=== PATIENT | male | born 1950 | race Caucasian/White ===

== ENCOUNTER 2025-05-24 06:15 | Inpatient (IN) ==
[~2025-05-24 06:15] MED LIST: ULTANE GAS IN ONE
[2025-05-24] MEDS: OFIRMEV IV 1000 MG VIAL 1,000 MG/100 ML VIAL IV ONE (07:11)
[2025-05-24] MEDS: ROBINUL ONE (07:11)
[2025-05-24] MEDS: ZEMURON 100 MG VIAL ONE (07:11)
[2025-05-24] MEDS: ZOFRAN INJ 4 MG VIAL ONE (07:11)
[2025-05-24] MEDS: DECADRON INJ ONE (07:11)
[2025-05-24] MEDS: DIPRIVAN VIAL 20 ML ONE (07:11)
[2025-05-24] MEDS: PRECEDEX INJ VIAL ONE (07:11)
[2025-05-24] MEDS: BRIDION ONE (07:11)
[2025-05-24] MEDS: REGLAN INJ 10 MG VIAL ONE (07:11)
[2025-05-24] MEDS: NICARDIPINE HCL VIAL ONE (07:12)
[2025-05-24] MEDS: VERSED ONE (07:12)
[2025-05-24] MEDS: XYLOCAINE 2 % (PLAIN) ONE (07:12)
[2025-05-24] MEDS: FENTANYL VIAL INJ 100 mcg ONE (07:15)
[2025-05-24] MEDS: PEPCID 20 MG VIAL ONE (07:16)
[2025-05-24] MEDS: KETAMINE HCL ONE (07:18)
[2025-05-24] MEDS ORDERED: CATAPRES TAB 0.1 MG PO ONE (07:28)
[2025-05-24] MEDS: LR 1,000 ML IV 500 ML IV PRN (07:30)
[2025-05-24] MEDS: NS 100 ML IV 100 ML ONE (07:40)
[2025-05-24] MEDS: LR 1,000 ML IV 1,000 ML IV ONE (07:40)
[2025-05-24] MEDS: CATAPRES TAB 0.1 MG PO ONE (07:40)
[2025-05-24] MEDS: ANCEF VIAL 1 GRAM ONE (07:41)
[2025-05-24] MEDS: ZOFRAN INJ 4 MG VIAL IVP PRN (07:41)
[2025-05-24] MEDS: PEPCID 20 MG VIAL IVP PRN (07:42)
[2025-05-24] MEDS: ANCEF VIAL 1 GRAM IV PRN (07:43)
[2025-05-24] MEDS: REGLAN INJ 10 MG VIAL IVP PRN (07:44)
[2025-05-24] MEDS: VERSED IVP PRN (07:47)
[2025-05-24] MEDS: FENTANYL VIAL INJ 100 mcg IVP PRN (07:52)
[2025-05-24] MEDS: ZEMURON 100 MG VIAL IVP PRN (07:54)
[2025-05-24] MEDS: NS 500 ML IV 500 ML IV ONE (08:00)
[2025-05-24] MEDS: KETAMINE HCL IVP PRN (08:06)
[2025-05-24] MEDS: ROBINUL IVP PRN (08:08)
[2025-05-24] MEDS: EPHEDRINE SULFATE INJ ONE (08:10)
[2025-05-24] MEDS: NS 1,000 ML IV 1,000 ML ONE (08:10)
[2025-05-24] MEDS: NS 1,000 ML IV 200 ML IV PRN (08:12)
[2025-05-24] MEDS: HEPARIN SODIUM INJ 5000 UNITS ONE (08:19)
[2025-05-24] MEDS: DECADRON INJ IVP PRN (08:20)
[2025-05-24] MEDS: OFIRMEV IV 1000 MG VIAL 1,000 MG/100 ML VIAL IV PRN (08:22)
[2025-05-24] MEDS: HEPARIN 1,000 UNIT/500 ML-NS 3,000 UNIT/1,500 ML IV.SOLN ONE (08:22)
[2025-05-24] MEDS: DIPRIVAN VIAL 200 ML IVP PRN (08:27)
[2025-05-24] MEDS: MARCAINE 0.5% ONE (08:36)
[2025-05-24] MEDS ORDERED: HEPARIN SODIUM INJ 5000 UNITS IVP PRN (08:45)
[2025-05-24] MEDS ORDERED: BARHEMSYS INJ IVP PRN (08:54)
[2025-05-24] MEDS ORDERED: ZOFRAN INJ 4 MG VIAL IVP PRN (08:54)
[2025-05-24] MEDS ORDERED: BENADRYL INJ 50 MG VIAL IVP PRN (08:54)
[2025-05-24] MEDS: PROTAMINE SULFATE 50 MG VIAL ONE (09:27)
[2025-05-24] MEDS: PROTAMINE SULFATE 50 MG VIAL IVP PRN (09:28)
[2025-05-24] MEDS: EPHEDRINE SULFATE INJ IVP PRN (09:33)
[2025-05-24] MEDS: BRIDION IVP PRN (09:34)
[2025-05-24] MEDS ORDERED: XYLOCAINE 2 % (PLAIN) PRN (09:38)
[2025-05-24] MEDS: NICARDIPINE HCL VIAL IV PRN (09:39)
[2025-05-24] MEDS ORDERED: DILAUDID INJ ONE (09:39)
[2025-05-24] MEDS: PRECEDEX INJ VIAL IVP PRN (09:41)
[2025-05-24] MEDS: DILAUDID INJ IVP PRN ×3 (09:55→20:13)
[2025-05-24] MEDS: TORADOL 30 MG VIAL ONE (10:05)
[2025-05-24] MEDS: DILAUDID INJ ONE (10:24)
--- NOTE | 2025-05-24 11:09 | OR.IMMED ---
IMMEDIATE POST-OP NOTE Immediate Post-Op Note Date of surgery/procedure: 05/24/25 Pre-Op Diagnosis: Severe stenosis left internal carotid artery Post-Op Diagnosis: 90% stenosis left internal carotid artery, over a narrow range at the takeoff of the internal carotid artery Procedure: Left carotid arterectomy and patch angioplasty Surgeon/Edge Burnisher: Lino Findings: as above Specimens Removed: Carotid artery plaque Estimated Blood Loss: 150 cc Complications: none, awoke with no neurological deficit Progress Notes: To PACU then to floor. Clear liquid diet. Start all home medications. Start daily aspirin
[2025-05-24] MEDS: LR 1,000 ML IV 1,000 ML IV SCH (11:30)
[2025-05-24] MEDS: ULTANE GAS IN ONE (12:03)
[2025-05-24] MEDS: PERCOCET TAB 5/325 MG ONE (12:03)
[2025-05-24] MEDS: NEURONTIN CAP 300 MG PO SCH (13:12)
[2025-05-24] MEDS: BENADRYL INJ 50 MG VIAL IVP ONE (15:07)
[2025-05-24] MEDS: PEPCID 20 MG VIAL IVP SCH (16:04)
--- NOTE | 2025-05-24 19:02 | NOTE.SOAP ---
Soap Note Note for Day of Date of Exam: 05/24/25 Subjective Data Subjective Data: S/ P left carotid endarterectomy with patch angioplasty of severe stenosis of left internal carotid artery. Patient has had some difficulty swallowing liquids and tablets since surgery. He has had coughing and short soreness of his throat since the intubation. I also had to dissected off the 12th nerve and he does have some mild difficulty protruding the left side of the tongue. This uses however does not affect swallowing is more so mastication. He is otherwise stable and started back on his usual medications. Objective Data Temperature: 97.5 F Pulse Rate: 66 Respiratory Rate: 18 Blood Pressure: 162/75 O2 Sat by Pulse Oximetry: 100 Objective Data: Left neck incision clean and dry. No hematoma. No swelling. Mild difficulty protruding the left side of the tongue Assessment Assessment: Status post left carotid neurectomy and patch angioplasty with mild difficulty protruding left side of the tongue. Patient has been started on a regular diet and is able to eat it well. We will obtain swallowing study tomorrow Plan Plan: see assessment above
[2025-05-24] MEDS ORDERED: ZOLOFT ONE (20:06)
[2025-05-24] MEDS: CRESTOR TAB 10 MG PO SCH (20:11)
[2025-05-24] MEDS: LOTENSIN TAB 10 MG PO SCH (20:11)
[2025-05-24] MEDS: ZOLOFT PO SCH (20:12)
[2025-05-24] MEDS: COLACE CAP 100 MG PO SCH (20:12)
[2025-05-24] MEDS: CATAPRES TAB 0.2 MG PO ONE (21:59)
[2025-05-24] MEDS: LOTENSIN TAB 10 MG PO ONE (21:59)
[2025-05-25] MEDS: CATAPRES TAB 0.2 MG PO ONE (01:15)
[2025-05-25 05:25] LABS: MEAN PLATELET VOLUME 9.7 fL (7.4-11.0); RED CELL DISTRIBUTION WIDTH 13.8 % (11.6-16.5)
[2025-05-25 05:41] LABS: COR CA(FOR HYPOALB) 8.8 mg/dL (8.5-10.1); COR NA(FOR HYPERGLY) 139 mmol/L (136-145); CREATININE 1.45 mg/dL (0.70-1.30); eGFR NON BLACK RACES 51 (>60)
[2025-05-25] MEDS: CATAPRES TAB 0.2 MG ONE (07:01)
[2025-05-25] MEDS: ASPIRIN EC 81 MG PO SCH (08:18)
[2025-05-25] MEDS: NEURONTIN CAP 300 MG PO SCH (08:38)
[2025-05-25] MEDS: ZOLOFT ONE (08:49)
[2025-05-25] MEDS: LOTENSIN TAB 10 MG PO SCH (08:53)
[2025-05-25] MEDS: NORVASC TAB 5 MG PO SCH (08:53)
[2025-05-25] MEDS: APRESOLINE INJ 20 MG VIAL IVP ONE (12:35)
[2025-05-25] MEDS: PERCOCET TAB 5/325 MG PO PRN (14:33)
[2025-05-25] MEDS: CATAPRES-TTS-1 TD PRN (14:33)
[2025-05-25] MEDS ORDERED: ZOLOFT ONE (19:03)
--- NOTE | 2025-05-25 20:05 | NOTE.SOAP ---
Soap Note Note for Day of Date of Exam: 05/25/25 Subjective Data Subjective Data: Postoperative day 1 after left carotid endarterectomy and patch angioplasty. Patient complaining some difficulty swallowing. Question of involvement of the left 12th nerve. Tongue does however appear midline. Patient seen in consultation by speech therapy and had swallowing study which they recommend he turn his head to the left when eating and that is doing better. There is a main problem post procedure has been his hypertension. He has been seen in consultation by Dr. Martinez and started on amlodipine and Benzepril. Objective Data Temperature: 98.4 F Pulse Rate: 55 Respiratory Rate: 18 Blood Pressure: 154/72 O2 Sat by Pulse Oximetry: 96 Objective Data: Left neck incision looks clean no hematoma. Tongue appears midline now. Assessment Assessment: Status post left carotid enterectomy with some difficulty swallowing and some hypertension post procedure. Plan Plan: Recommendations as per speech therapy in regards to swallowing. Hopefully this resolves on its own. Patient was started on amlodipine and Benzepril by Dr. Martinez and already blood pressure seems to be improved. Will plan discharge home in the a.m.
[2025-05-26 05:47] LABS: MEAN PLATELET VOLUME 9.8 fL (7.4-11.0); RED CELL DISTRIBUTION WIDTH 13.6 % (11.6-16.5)
[2025-05-26 05:56] LABS: COR CA(FOR HYPOALB) 9.0 mg/dL (8.5-10.1); CREATININE 1.34 mg/dL (0.70-1.30); eGFR NON BLACK RACES 56 (>60)
[2025-05-26] MEDS ORDERED: TESSALON PERLES PO PRN (08:04)
[2025-05-26] MEDS: ZOLOFT ONE (08:06)
[2025-05-26] MEDS: CATAPRES-TTS-2 TD SCH (08:21)
[2025-05-26 08:43] VITALS: O2SAT 96
[2025-05-26] MEDS: MUCINEX DM PO SCH (08:50)
[2025-05-26] MEDS: TRANSDERM-SCOP TD SCH (08:51)
[2025-05-26] MEDS: DECADRON INJ IVP SCH (08:51)
--- NOTE | 2025-05-26 09:14 | DR.CONSULT ---
CONSULT Consultation for Day of: Date: 05/25/25 Chief Complaint Chief Complaint: Hypertension Allergies Allergies Allergy/AdvReac Type Severity Reaction Status Date / Time codeine Allergy Verified 05/24/25 06:51 haloperidol (From Haldol) Allergy Verified 05/24/25 06:51 History of Present Illness History of Present Illness: Patient admitted by surgery for left carotid endarterectomy. Was originally planned to be discharged quickly after surgery but blood pressures have remained elevated and he has had some difficulty swallowing. Speech therapy is post come by later today for evaluation. Blood pressure has been as high as 206/91 he normally takes benazepril at home. Patient currently reports mild difficulty swallowing, mild vocal changes, and cough. Denies headache, vision changes, chest pain, BOO, or edema. PMH: CKD 3A, HLD, carotid stenosis, hypertension. PSH: Left carotid endarterectomy, appendectomy. Social: [place] resident, retired, no tobacco use. ROS: 12 point ROS negative except as noted above. PE: Well-developed, well-nourished male in no acute distress. Head NCAT with bandage to the left anterolateral neck. Heart regular rate and rhythm, lungs clear, belly soft with bowel sounds present. Able to move all extremities equally well. Able to sit up in bed with no difficulty. Speech is grossly normal. Past Surgical History Surgical History: Appendectomy Family History Family Medical History: Diabetes Mellitus, Cancer and Hypertension Medications Home Medications: codeine Allergy (Verified 05/24/25 06:51) haloperidol (From Haldol) Allergy (Verified 05/24/25 06:51) CONTINUE taking the following medications atorvastatin 40 mg tablet 40 mg PO QDAY 05/24/25 [History] benazepril 10 mg tablet 10 mg PO QDAY 05/24/25 [History] gabapentin 600 mg tablet 600 mg PO DAILY 05/24/25 [History] ibuprofen 800 mg tablet 800 mg PO TID 05/24/25 [History] sertraline 100 mg tablet 100 mg PO BID 05/24/25 [History] Physical Exam Vital Signs: Vital Signs Temperature 98.0 F Pulse Rate [Apical] 62 Pulse Rate [Apical] 64 Pulse Rate [Apical] 58 Pulse Rate [Apical] 60 Pulse Rate [Apical] 55 Pulse Rate [Apical] 66 Pulse Rate [Apical] 58 Pulse Rate [Apical] 59 Respiratory Rate 20 Respiratory Rate 18 Respiratory Rate 20 Respiratory Rate 18 Respiratory Rate 20 Respiratory Rate 20 Respiratory Rate 22 Respiratory Rate 22 Respiratory Rate 20 Blood Pressure [Left Arm] 188/72 Blood Pressure [Left Arm] 168/80 Blood Pressure [Left Arm] 170/72 Blood Pressure [Left Arm] 150/72 Blood Pressure [Left Arm] 162/80 Blood Pressure [Left Arm] 168/84 Blood Pressure [Left Arm] 187/76 Blood Pressure [Left Arm] 190/84 Blood Pressure [Left Arm] 160/70 Blood Pressure [Left Arm] 179/82 Blood Pressure [Left Arm] 170/72 O2 Sat by Pulse Oximetry 97 O2 Sat by Pulse Oximetry 97 O2 Sat by Pulse Oximetry 97 O2 Sat by Pulse Oximetry 96 O2 Sat by Pulse Oximetry 95 O2 Sat by Pulse Oximetry 99 O2 Sat by Pulse Oximetry 96 O2 Sat by Pulse Oximetry 95 Plan (1) Essential (primary) hypertension: Status: Chronic Narrative Support Text: Double benazepril and make twice daily. Start amlodipine 5 twice daily. Continue hypertension protocol. May need to add a clonidine patch (2) Mixed hyperlipidemia: Status: Chronic Narrative Support Text: Can resume the statin or hold it due to dysphagia (3) Chronic kidney disease, stage 3a: Status: Chronic (4) History of left-sided carotid endarterectomy: Status: Acute (5) Acute cough: Status: Acute (6) Dysphagia: Status: Acute Qualifiers: Dysphagia type: unspecified Qualified Code(s): R13.10 - Dysphagia, unspecified Narrative Support Text: Per surgery and ST.
--- NOTE | 2025-05-26 09:16 | NOTE.SOAP ---
Soap Note Note for Day of Date of Exam: 05/26/25 Subjective Data Subjective Data: No acute events overnight. Continues to cough. Voice is more hoarse today. Did have Benadryl yesterday. ST advised that he turn to the left when trying to eat but otherwise no major recommendations. Blood pressure is better but still not at goal. Did have a couple doses of IV hydralazine yesterday. Tolerating the benazepril and amlodipine. Objective Data Objective Data: Well-developed, well-nourished male in no acute distress. Consistently coughing but nonproductive. Heart regular rate and rhythm with clear lungs. Voice is hoarse. Belly is soft with bowel sounds present. Still able to sit up and move all extremities appropriately. Assessment Assessment: 1. Benign ess HTN 2. CKD3a 3. s/p LEFT carotid endartectomy 4. Mixed HLD Plan Plan: Start clonidine patch. BP is better, but still to high. Continue other meds. Discharge home on current meds when cleared by surgery for close f/u with PCP. Consider IV Decadron 6 mg today and tomorrow along with a scopolamine patch. Would also recommend some benzonatate as needed and Mucinex.
[2025-05-26 12:03] VITALS: BP 178/79; PULSE 77; RESP 18; TEMP 98.2
--- NOTE | 2025-05-26 12:15 | W.DIS.FURT ---
Summary of Discharge Discharge Summary of Date Date of Exam: 05/26/25 Admission Date Date of Admission: 05/24/25 Admission Diagnosis Hospital Course: This is a 74-year-old male with known significant bilateral carotid artery stenosis. He was admitted for left carotid endarterectomy and patch angioplasty which was performed on the day of admission May 24, 2025. During the procedure he had a very tightly adherent and inflamed area around the 12th nerve which was dissected free. The nerve remained intact. He underwent this procedure without difficulty otherwise. No neurological deficit. Tongue is still midline. Post procedure he does have some difficulty swallowing and coughing. He has been seen by speech therapy and they recommend that he turn his head to the left when swallowing. He is sparingly taking regular diet and has some mucus production. He was given the option of remaining in the hospital versus going home. He chose to go home . He is to be discharged home on his usual medications. He also had some hypertension postprocedure and was seen in consultation by Dr. Martinez who placed him on Benzapril 20 mg twice daily and amlodipine 5 mg twice daily. He will continue these plus Percocet 5 mg tablets 1 every 6 hours PRN pain in addition to his usual medications. He will follow-up me in 1 week. He has my personal cell phone number to call me for any problems. Vital Signs: Vital Signs (72 hours) 05/24/25 06:30 05/24/25 06:30 05/24/25 09:51 Temperature 98.6 F 97.0 F L Pulse Rate 67 98 H Pulse Rate [Apical] Respiratory Rate 18 18 Blood Pressure 206/91 156/78 Blood Pressure [Left Arm] O2 Sat by Pulse Oximetry 100 100 Oxygen Delivery Method Room Air Room Air Aerosol Face Tent Oxygen Flow Rate FIO2% 05/24/25 09:56 05/24/25 10:01 05/24/25 10:05 Temperature Pulse Rate 98 H 79 Pulse Rate [Apical] Respiratory Rate 18 20 18 Blood Pressure 171/81 167/79 Blood Pressure [Left Arm] O2 Sat by Pulse Oximetry 100 100 Oxygen Delivery Method Aerosol Face Tent Nasal Cannula Oxygen Flow Rate FIO2% 05/24/25 10:06 05/24/25 10:11 05/24/25 10:14 Temperature Pulse Rate 79 65 Pulse Rate [Apical] Respiratory Rate 20 18 18 Blood Pressure 149/53 182/76 Blood Pressure [Left Arm] O2 Sat by Pulse Oximetry 100 100 Oxygen Delivery Method Nasal Cannula Nasal Cannula Oxygen Flow Rate FIO2% 05/24/25 10:16 05/24/25 10:21 05/24/25 10:25 Temperature Pulse Rate 64 72 Pulse Rate [Apical] Respiratory Rate 18 18 18 Blood Pressure 162/75 137/59 Blood Pressure [Left Arm] O2 Sat by Pulse Oximetry 99 99 Oxygen Delivery Method Nasal Cannula Nasal Cannula Oxygen Flow Rate FIO2% 05/24/25 10:26 05/24/25 10:31 05/24/25 10:36 Temperature Pulse Rate 79 65 63 Pulse Rate [Apical] Respiratory Rate 18 17 17 Blood Pressure 141/62 179/78 147/70 Blood Pressure [Left Arm] O2 Sat by Pulse Oximetry 100 95 94 L Oxygen Delivery Method Nasal Cannula Nasal Cannula Nasal Cannula Oxygen Flow Rate FIO2% 05/24/25 10:41 05/24/25 10:46 05/24/25 10:51 Temperature Pulse Rate 62 62 61 Pulse Rate [Apical] Respiratory Rate 17 18 18 Blood Pressure 150/80 137/59 149/71 Blood Pressure [Left Arm] O2 Sat by Pulse Oximetry 96 95 94 L Oxygen Delivery Method Nasal Cannula Nasal Cannula Nasal Cannula Oxygen Flow Rate FIO2% 05/24/25 10:56 05/24/25 11:00 05/24/25 11:01 Temperature Pulse Rate 62 63 Pulse Rate [Apical] Respiratory Rate 18 18 18 Blood Pressure 147/70 136/62 Blood Pressure [Left Arm] O2 Sat by Pulse Oximetry 95 95 Oxygen Delivery Method Nasal Cannula Nasal Cannula Oxygen Flow Rate FIO2% 05/24/25 11:05 05/24/25 11:06 05/24/25 11:10 Temperature 97.0 F L Pulse Rate 72 65 Pulse Rate [Apical] Respiratory Rate 18 18 18 Blood Pressure 133/77 132/79 Blood Pressure [Left Arm] O2 Sat by Pulse Oximetry 98 98 Oxygen Delivery Method Nasal Cannula Nasal Cannula Oxygen Flow Rate FIO2% 05/24/25 11:20 05/24/25 11:35 05/24/25 11:50 Temperature 97.9 F 97.4 F L 98.5 F Pulse Rate Pulse Rate [Apical] 61 58 L 61 Respiratory Rate 16 16 16 Blood Pressure Blood Pressure [Left Arm] 155/75 152/73 134/65 O2 Sat by Pulse Oximetry 98 100 100 Oxygen Delivery Method Oxygen Flow Rate FIO2% 05/24/25 12:05 05/24/25 12:20 05/24/25 13:20 Temperature 98.5 F 97.6 F 97.6 F Pulse Rate Pulse Rate [Apical] 59 L 57 L 63 Respiratory Rate 16 18 18 Blood Pressure Blood Pressure [Left Arm] 137/68 136/65 156/74 O2 Sat by Pulse Oximetry 100 100 100 Oxygen Delivery Method Oxygen Flow Rate FIO2% 05/24/25 14:20 05/24/25 15:20 05/24/25 16:20 Temperature 98.0 F 98.0 F 97.5 F L Pulse Rate Pulse Rate [Apical] 66 59 L 57 L Respiratory Rate 18 18 18 Blood Pressure Blood Pressure [Left Arm] 145/66 151/68 160/73 O2 Sat by Pulse Oximetry 100 100 100 Oxygen Delivery Method Oxygen Flow Rate FIO2% 05/24/25 17:00 05/24/25 17:00 05/24/25 18:00 Temperature Pulse Rate Pulse Rate [Apical] 63 65 Respiratory Rate 18 18 Blood Pressure Blood Pressure [Left Arm] 166/78 177/79 O2 Sat by Pulse Oximetry 100 100 Oxygen Delivery Method Cool Aerosol Mask Room Air Room Air Oxygen Flow Rate 5 FIO2% 28 05/24/25 18:17 05/24/25 19:00 05/24/25 19:00 Temperature Pulse Rate Pulse Rate [Apical] 66 77 Respiratory Rate 18 20 Blood Pressure Blood Pressure [Left Arm] 162/75 158/73 O2 Sat by Pulse Oximetry 100 100 Oxygen Delivery Method Room Air Room Air Room Air Oxygen Flow Rate FIO2% 05/24/25 19:00 05/24/25 19:02 05/24/25 20:13 Temperature 98.1 F 97.5 F L Pulse Rate 66 Pulse Rate [Apical] 61 Respiratory Rate 20 18 20 Blood Pressure 162/75 Blood Pressure [Left Arm] 158/73 O2 Sat by Pulse Oximetry 97 100 Oxygen Delivery Method Room Air Oxygen Flow Rate FIO2% 05/24/25 20:43 05/24/25 21:00 05/24/25 21:00 Temperature Pulse Rate Pulse Rate [Apical] 61 Respiratory Rate 20 18 Blood Pressure Blood Pressure [Left Arm] 177/79 O2 Sat by Pulse Oximetry 96 Oxygen Delivery Method Room Air Room Air Oxygen Flow Rate FIO2% 05/24/25 22:00 05/24/25 23:00 05/24/25 23:09 Temperature Pulse Rate Pulse Rate [Apical] 76 64 Respiratory Rate 20 18 Blood Pressure Blood Pressure [Left Arm] 176/103 187/79 170/80 O2 Sat by Pulse Oximetry 97 97 Oxygen Delivery Method Room Air Room Air Oxygen Flow Rate FIO2% 05/24/25 23:50 05/25/25 00:10 05/25/25 00:20 Temperature 98.3 F Pulse Rate Pulse Rate [Apical] 60 Respiratory Rate 20 22 20 Blood Pressure Blood Pressure [Left Arm] 177/77 O2 Sat by Pulse Oximetry 95 Oxygen Delivery Method Room Air Oxygen Flow Rate FIO2% 05/25/25 00:30 05/25/25 01:00 05/25/25 01:30 Temperature Pulse Rate Pulse Rate [Apical] 59 L 58 L Respiratory Rate 20 22 Blood Pressure Blood Pressure [Left Arm] 170/72 179/82 160/70 O2 Sat by Pulse Oximetry 95 96 Oxygen Delivery Method Room Air Room Air Oxygen Flow Rate FIO2% 05/25/25 01:30 05/25/25 02:00 05/25/25 02:15 Temperature Pulse Rate Pulse Rate [Apical] 66 Respiratory Rate 22 Blood Pressure Blood Pressure [Left Arm] 190/84 187/76 168/84 O2 Sat by Pulse Oximetry 99 Oxygen Delivery Method Room Air Oxygen Flow Rate FIO2% 05/25/25 03:00 05/25/25 04:00 05/25/25 05:00 Temperature 98.0 F Pulse Rate Pulse Rate [Apical] 55 L 60 58 L Respiratory Rate 20 20 18 Blood Pressure Blood Pressure [Left Arm] 162/80 150/72 170/72 O2 Sat by Pulse Oximetry 95 96 97 Oxygen Delivery Method Room Air Room Air Room Air Oxygen Flow Rate FIO2% 05/25/25 06:00 05/25/25 07:00 05/25/25 07:15 Temperature Pulse Rate Pulse Rate [Apical] 64 62 Respiratory Rate 20 18 Blood Pressure Blood Pressure [Left Arm] 168/80 188/72 O2 Sat by Pulse Oximetry 97 97 Oxygen Delivery Method Room Air Room Air Room Air Oxygen Flow Rate FIO2% 05/25/25 07:30 05/25/25 08:00 05/25/25 08:20 Temperature 98.3 F Pulse Rate Pulse Rate [Apical] 56 L Respiratory Rate 20 18 18 Blood Pressure Blood Pressure [Left Arm] 182/80 O2 Sat by Pulse Oximetry 98 Oxygen Delivery Method Room Air Oxygen Flow Rate FIO2% 05/25/25 08:34 05/25/25 09:20 05/25/25 10:10 Temperature Pulse Rate Pulse Rate [Apical] 57 L 56 L Respiratory Rate 18 18 Blood Pressure Blood Pressure [Left Arm] 168/70 150/60 O2 Sat by Pulse Oximetry 98 95 Oxygen Delivery Method Room Air Room Air Room Air Oxygen Flow Rate FIO2% 21 05/25/25 11:17 05/25/25 11:47 05/25/25 12:15 Temperature 98.2 F Pulse Rate Pulse Rate [Apical] 63 Respiratory Rate 18 18 18 Blood Pressure Blood Pressure [Left Arm] 182/74 O2 Sat by Pulse Oximetry 96 Oxygen Delivery Method Room Air Oxygen Flow Rate FIO2% 05/25/25 13:15 05/25/25 14:20 05/25/25 14:33 Temperature Pulse Rate Pulse Rate [Apical] 75 56 L Respiratory Rate 18 18 18 Blood Pressure Blood Pressure [Left Arm] 158/62 172/74 O2 Sat by Pulse Oximetry 95 99 Oxygen Delivery Method Room Air Room Air Oxygen Flow Rate FIO2% 05/25/25 15:33 05/25/25 15:52 05/25/25 16:00 Temperature 98.4 F Pulse Rate Pulse Rate [Apical] 55 L Respiratory Rate 18 18 18 Blood Pressure Blood Pressure [Left Arm] 154/72 O2 Sat by Pulse Oximetry 96 Oxygen Delivery Method Room Air Oxygen Flow Rate FIO2% 05/25/25 16:22 05/25/25 18:00 05/25/25 18:58 Temperature Pulse Rate Pulse Rate [Apical] 62 Respiratory Rate 18 18 Blood Pressure Blood Pressure [Left Arm] 170/78 O2 Sat by Pulse Oximetry 97 Oxygen Delivery Method Room Air Room Air Oxygen Flow Rate FIO2% 05/25/25 19:44 05/25/25 20:00 05/25/25 20:05 Temperature 98.2 F 98.4 F Pulse Rate 55 L Pulse Rate [Apical] 55 L Respiratory Rate 20 20 18 Blood Pressure 154/72 Blood Pressure [Left Arm] 172/82 O2 Sat by Pulse Oximetry 98 96 Oxygen Delivery Method Room Air Oxygen Flow Rate FIO2% 05/25/25 20:14 05/25/25 22:00 05/25/25 22:51 Temperature Pulse Rate Pulse Rate [Apical] 60 Respiratory Rate 20 20 20 Blood Pressure Blood Pressure [Left Arm] 160/86 O2 Sat by Pulse Oximetry 99 Oxygen Delivery Method Room Air Oxygen Flow Rate FIO2% 05/25/25 23:51 05/26/25 00:00 05/26/25 02:00 Temperature 98.1 F Pulse Rate Pulse Rate [Apical] 59 L 79 Respiratory Rate 18 18 20 Blood Pressure Blood Pressure [Left Arm] 160/72 168/72 O2 Sat by Pulse Oximetry 95 97 Oxygen Delivery Method Room Air Room Air Oxygen Flow Rate FIO2% 05/26/25 02:09 05/26/25 02:39 05/26/25 04:00 Temperature 98.2 F Pulse Rate Pulse Rate [Apical] 61 Respiratory Rate 20 20 18 Blood Pressure Blood Pressure [Left Arm] 160/72 O2 Sat by Pulse Oximetry 96 Oxygen Delivery Method Room Air Oxygen Flow Rate FIO2% 05/26/25 05:45 05/26/25 07:00 05/26/25 08:00 Temperature 98.0 F Pulse Rate Pulse Rate [Apical] 77 72 Respiratory Rate 20 Blood Pressure Blood Pressure [Left Arm] 180/90 176/90 O2 Sat by Pulse Oximetry 98 96 Oxygen Delivery Method Room Air Room Air Oxygen Flow Rate FIO2% Labs: Laboratory Last Values WBC 5.6 X10^3/uL (3.6-10.0) 05/26/25 05:19 RBC 3.05 X10^6/uL (4.7-6.0) L 05/26/25 05:19 Hgb 9.1 g/dL (13.5-18.0) L 05/26/25 05:19 Hct 26.7 % (42.0-54.0) L 05/26/25 05:19 MCV 87.4 fL (80.0-100.0) 05/26/25 05:19 MCH 30.0 pg (27.0-34.0) 05/26/25 05:19 MCHC 34.3 g/dL (33.0-35.0) 05/26/25 05:19 RDW 13.6 % (11.6-16.5) 05/26/25 05:19 Plt Count 172 X10^3/uL (150.0-450.0) 05/26/25 05:19 MPV 9.8 fL (7.4-11.0) 05/26/25 05:19 Neut % (Auto) 56.8 % (42.0-75.0) 05/26/25 05:19 Lymph % (Auto) 30.8 % (21.0-51.0) 05/26/25 05:19 [place] % (Auto) 9.7 % (0.0-13.0) 05/26/25 05:19 Eos % (Auto) 1.9 % (0.9-2.9) 05/26/25 05:19 Baso % (Auto) 0.8 % (0.2-1.0) 05/26/25 05:19 Neut # (Auto) 3.2 x10^3/uL (2.2-4.8) 05/26/25 05:19 Lymph # (Auto) 1.7 X10^3/uL (1.3-2.9) 05/26/25 05:19 [place] # (Auto) 0.5 x10^3/uL (0.3-0.8) 05/26/25 05:19 Eos # (Auto) 0.1 x10^3/uL (0.0-0.2) 05/26/25 05:19 Baso # (Auto) 0.0 X10^3/uL (0.0-0.1) 05/26/25 05:19 Absolute Nucleated RBC 0.1 /100WBC 05/26/25 05:19 Sodium 139 mmol/L (136-145) 05/26/25 05:19 Corrected Sodium TNP 05/26/25 05:19 Potassium 4.1 mmol/L (3.5-5.1) 05/26/25 05:19 Chloride 103 mmol/L (98-107) 05/26/25 05:19 Carbon Dioxide 29.5 mmol/L (21-32) 05/26/25 05:19 BUN 18 mg/dL (7-18) 05/26/25 05:19 Creatinine 1.34 mg/dL (0.70-1.30) H 05/26/25 05:19 Est GFR (MDRD) Af Amer > 60 (>60) 05/26/25 05:19 Est GFR (MDRD) Non-Af 56 (>60) L 05/26/25 05:19 Glucose 109 mg/dL (65-99) H 05/26/25 05:19 POC Glucose (mg/dL) 130 mg/dL (65-99) H 05/24/25 07:37 Calcium 8.4 mg/dL (8.5-10.1) L 05/26/25 05:19 Corrected Calcium 9.0 mg/dL (8.5-10.1) 05/26/25 05:19 Total Bilirubin 0.40 mg/dL (0.2-1.0) 05/26/25 05:19 AST 16 Units/L (15-37) 05/26/25 05:19 ALT 13 Units/L (12-78) 05/26/25 05:19 Alkaline Phosphatase 53 Units/L (46-116) 05/26/25 05:19 Total Protein 6.9 g/dL (6.4-8.2) 05/26/25 05:19 Albumin 3.2 g/dL (3.4-5.0) L 05/26/25 05:19 Globulin 3.7 g/dL (2.5-4.5) 05/26/25 05:19 Albumin/Globulin Ratio 0.9 Ratio (1.1-2.1) L 05/26/25 05:19 Blood Type A POSITIVE 05/24/25 07:27 Antibody Screen Negative 05/24/25 07:27 Reason For Visit: LEFT CAROTID ENDARTERECTOMY Discharge Date Discharge Date: 05/26/25 Discharge Diagnosis All Active Problems (Updated 05/26/25 @ 09:14 by Russell Martinez MD) Dysphagia (Acute) Acute cough (Acute) History of left-sided carotid endarterectomy (Acute) Chronic kidney disease, stage 3a (Chronic) Mixed hyperlipidemia (Chronic) Essential (primary) hypertension (Chronic) Plan of Treatment: Continue with present treatment and follow up plan. Pt is to keep follow up appointment as instructed and take medications as ordered. Discharge Medications Discharge Medications: codeine Allergy (Verified 05/24/25 06:51) haloperidol (From Haldol) Allergy (Verified 05/24/25 06:51) CONTINUE taking the following medications atorvastatin 40 mg tablet 40 mg PO QDAY 05/24/25 [History] benazepril 20 mg po BID [History] gabapentin 600 mg tablet 600 mg PO DAILY 05/24/25 [History] ibuprofen 800 mg tablet 800 mg PO TID 05/24/25 [History] sertraline 100 mg tablet 100 mg PO BID 05/24/25 [History Amlodipine, 5 mg twice daily Percocet 5 mg tablets 1 every 6 hours as needed pain] Discharge Disposition Assessment: see hospital course Discharge Plan Discharge Plan Hospital Course: This is a 74-year-old male with known significant bilateral carotid artery stenosis. He was admitted for left carotid endarterectomy and patch angioplasty which was performed on the day of admission May 24, 2025. During the procedure he had a very tightly adherent and inflamed area around the 12th nerve which was dissected free. The nerve remained intact. He underwent this procedure without difficulty otherwise. No neurological deficit. Tongue is still midline. Post procedure he does have some difficulty swallowing and coughing. He has been seen by speech therapy and they recommend that he turn his head to the left when swallowing. He is sparingly taking regular diet and has some mucus production. He was given the option of remaining in the hospital versus going home. He chose to go home . He is to be discharged home on his usual medications. He also had some hypertension postprocedure and was seen in consultation by Dr. Martinez who placed him on Benzapril 20 mg twice daily and amlodipine 5 mg twice daily. He will continue these plus Percocet 5 mg tablets 1 every 6 hours PRN pain in addition to his usual medications. He will follow-up me in 1 week. He has my personal cell phone number to call me for any problems. Patient Disposition: 01 HOME, SELF-CARE Condition: Stable Health Concerns: Post Hospitalization: new medications and changes needed to prevent readmission or further decline. Pt educated and given instructions on all concerns. Care Plan Goals: Problem: Pain/Alteration in Comfort Goal: Improve/ Resolve Pain; Achieve Pain Tolerance Instructions: Take pain medications as prescribed. Contact your primary care provider if your pain is unrelieved or worsens. Follow up with primary care provider as directed. Plan of Treatment: Continue with present treatment and follow up plan. Pt is to keep follow up appointment as instructed and take medications as ordered. Assessment: see hospital course Prescription drug monitoring program results: PDMP reviewed and no concerns identified Prescriptions: New amlodipine 5 mg Tablet 5 mg PO BID Qty: 60 0RF benazepril 10 mg Tablet 20 mg PO BID Qty: 60 0RF oxycodone-acetaminophen [Percocet] 5-325 mg tablet 1 tab PO Q6H MDD 4 PRNQty: 20 0RF Continued atorvastatin 40 mg tablet 40 mg PO QDAY gabapentin 600 mg tablet 600 mg PO DAILY ibuprofen 800 mg tablet 800 mg PO TID sertraline 100 mg tablet 100 mg PO BID Discontinued benazepril 10 mg tablet 10 mg PO QDAY Follow ups/Referrals Follow ups/Referrals: Beto Huynh [Primary Care Provider, Unknown] - 06/02/25 2:00 pm Instructions Instructions: Carotid Endarterectomy, Fall Prevention in the Home, Adult, [id number], Carotid Endarterectomy, Care After, Hypertension, Adult, [id number] Activity Restrictions/Additional Instructions: Leave Catapres patch that was placed on 05/26 on until 06/02. Stand Alone Forms: Find Help Web Site, Post Hospital Follow Up Care Print Language: SYRIAC
[2025-05-26] MEDS ORDERED: STERILE WATER IRRIGATION IR ONE (13:23)
--- NOTE | 2025-06-02 10:58 | DR.OPNOTE ---
OP NOTE Pre-Op Diagnosis: Severe stenosis left internal carotid artery Post-Op Diagnosis: 90% or greater stenosis of the takeoff of the left internal carotid artery Procedure Date Date Of Procedure: 05/24/25 Procedure: PROCEDURE: Left carotid endarterectomy with patch angioplasty NARRATIVE: Patient was taken the operative suite and placed in the supine position and general endotracheal anesthesia induced. The entire left neck was elevated rotated to the right and prepped and draped in sterile fashion. Timeout for the procedure obtained. An incision was made along the anterior border of the left sternocletomastoid muscle with #15 knife blade seen through the platysma and subcutaneous tissue with electrocautery. Dissection carried down mobilizing the sternocleidomastoid muscle and retracting it laterally. Dissection carried down identifying the common carotid artery which was dissected free and a vessel loop placed around it. Vessel loop placed around the external carotid artery and the internal carotid artery above the plaque . The artery was rolled laterally and I had to divide the superior thyroid artery to get exposure. The 12th nerve was very adherent to the internal carotid artery and dissected free but was maintained intact. Patient was given 5000 units of heparin and after 3 minutes all branches were clamped and the common carotid artery opened with 11 knife and passes through the internal carotid artery into normal internal carotid artery. A 12 Irish shunt placed distally allowed backbleeding and then placed in the common carotid artery reestablishing flow via the shunt. Ed arterectomy carried out in standard fashion with a [place] dissector. The intima tacked down with interrupted 6-0 Prolene sutures. There was no floating material to be removed. The arteriotomy closed using a bovine pericardial patch measuring 8 cm x 0.8 cm patch sewing it into position with running 6-0 Prolene suture. Prior to completion of the closure the shunt removed and the arteries clamped and closure completed. Backbleeding allowed through the external carotid artery. Clamp removed from the common carotid artery and finally the internal carotid artery opened. Patient had excellent Doppler signals. There was no bleeding with the patch. Patient was given Protamine to reverse the heparin. All hemostasis obtrained with electrocautery. Platysma closed witj running 3-0 Vicryl suture. Skin closed running 5-0 Vicryl sutures and the skin closed with Steri-Strips. Patient awoke with no neurological deficit and taken to the PACU. Type of Anesthesia: General Anesthetic w/ETT Findings: see above Type of Fluids Used:: Lactated Ringers EBL: minimal Complications:: none Needle/Sponge Count:: correct Disposition/Condition: Pt. tolerated procedure without difficulty. Extubated in the OR and taken to PACU in stable condition.
== END 2025-05-26 13:45 | disposition home or self-care (01) | DRG 39 ==
LOC: OBS 06:15 → MED/SURG 11:21
PROVIDERS: ADMIT Surgery; ATTEND Surgery
DX: E11.65 Type 2 diabetes mellitus with hyperglycemia; R13.11 Dysphagia, oral phase; N18.31 Chronic kidney disease, stage 3a; R51.9 Headache, unspecified; I65.22 Occlusion and stenosis of left carotid artery; R05.1 Acute cough; E78.2 Mixed hyperlipidemia